=== PATIENT | male | born 1940 | race Caucasian/White ===

== ENCOUNTER 2020-03-07 13:18 | Emergency (ER) | payer MEDICARE, OTHER ==
[~2020-03-07 13:18] MED LIST: AMARYL2 MG PO; ASPIRIN CHEWABL81 MG PO; AZITHROMYCIN250 MG PO; BROVANA15 MCG/2 M INH; BUMEX1 MG PO; CEFDINIR300 MG PO; CLARITIN10 MG PO; DALIRESP250 MCG PO; ELIQUIS5 MG PO; FOLIC ACID1 MG PO; INCRUSE ELLI62.5 MCG INH; IPRAT-ALBUT 0.5-3 ML INH; IRON18 MG PO; JANUVIA50 MG PO; LANTUS **100 UNITS/ SC; LIPITOR40 MG PO; MAG-OXIDE 400M400 MG PO; NIACIN ER500 MG PO; OXYGEN; PEPCID AC20 MG PO; PLAVIX75 MG PO; PREDNISONE 20MG20 MG PO; PULMICORT0.5 MG/2 M NEB; SPIRIVA RESPIMAT4 G1 INH; SYNTHROID25 MCG PO; TOPROL XL 50 MG50 MG PO; TUDORZA PRESS400 MCG INH; VITAMIN B-121000 MC1 PO; ZESTRIL2.5 MG PO; ZOLOFT50 MG PO
[2020-03-07 14:29] LABS: BASOPHIL 0.7 % (0-2); EOSINOPHIL 2.4 % (0-7); HCT 41.8 % (42.0-52.0); LYMPHOCYTE 16.7 % (15-48); MCH 28.8 pg (25.0-31.0); MCHC 31.1 g/dL (32.0-36.0); MCV 92.5 fL (78.0-100.0); MONOCYTE 10.1 % (0-12); MPV 12.3 fL (6.0-9.5); NEUTROPHIL 68.4 % (41-80); NRBC 0; PLT 203 K/uL (150-400); RBC 4.52 M/uL (4.70-6.00); RDW 15.3 % (11.5-14.0); WBC 10.5 K/uL (4.0-10.5)
[2020-03-07 14:42] LABS: ALBUMIN 3.1 g/dL (3.4-5.0); BILIRUBIN - TOTAL 0.5 mg/dL (0.2-1.0); BUN/CREAT RATIO (CALC) 18.2 RATIO; CREATININE 1.92 mg/dL (0.67-1.17); GLOBULIN (CALCULATION) 4.3 g/dL; POTASSIUM 3.6 mmol/L (3.5-5.1); TOTAL PROTEIN 7.4 g/dL (6.4-8.2)
== END 2020-03-07 18:58 | disposition home or self-care (01) ==
LOC: FER 13:18
PROVIDERS: Emergency Medicine
DX: K59.00 Constipation, unspecified (principal); I12.9 Hypertensive chronic kidney disease with stage 1 through stage 4 chronic kidney disease, or unspecified chronic kidney disease; E11.22 Type 2 diabetes mellitus with diabetic chronic kidney disease; N18.9 Chronic kidney disease, unspecified; D64.9 Anemia, unspecified; E07.9 Disorder of thyroid, unspecified; Z87.19 Personal history of other diseases of the digestive system; Z79.899 Other long term (current) drug therapy; Z79.82 Long term (current) use of aspirin; Z79.01 Long term (current) use of anticoagulants; Z79.84 Long term (current) use of oral hypoglycemic drugs
CPT/HCPCS: 36415; 74022; 80053; 82150; 83690; 85025